=== PATIENT | female | born 1985 | race Caucasian/White ===

== ENCOUNTER 2023-03-16 21:03 | Emergency (ER) | payer BC ==
[~2023-03-16] VITALS: Ht 162.6 cm; Wt 65.8 kg
[~2023-03-16 21:03] MED LIST: FLUORESCEIN SODIUM 1 MG OPHTHALMIC STRIP OP ONE; PROPARACAINE (OPTHANINE 0.5%) 15 ML DROPS OP ONE
[2023-03-16 21:13] VITALS: BP_SYST 145; PULSE 102; RESP 20; TEMP 98.3; O2SAT 95
[2023-03-16] MEDS ORDERED: FLOEARD EACH EYE (21:23)
[2023-03-16 21:30] VITALS: BP_SYST 146; PULSE 91; RESP 18; O2SAT 96
== END 2023-03-16 21:30 | disposition home or self-care (01) ==
LOC: SED 21:03
DX: H11.002 Unspecified pterygium of left eye (principal); H10.89 Other conjunctivitis; Z79.899 Other long term (current) drug therapy
CPT/HCPCS: 99283